=== PATIENT | female | born 1990 | race Caucasian/White ===

== ENCOUNTER 2018-12-24 04:06 | Inpatient (IN) | payer BC ==
[2018-12-24] MEDS ORDERED: Penicillin G Potassium IV* 5 MILLION.UNITS VIAL ONE (04:45)
[2018-12-24] MEDS ORDERED: Penicillin G Potassium IV* 5,000,000 UNITS in NS 0.9% 100 ML* 100 ML IVPB ONE (04:45)
[2018-12-24 05:00] LABS: ABS Eosinophils 0.1 10^3/ul (0-0.6); ABS Lymphocytes 1.9 10^3/ul (1.0-4.8); ABS Monocytes 0.8 10^3/ul (0-0.8); ABS Neutrophils 7.4 10^3/ul (1.5-7.7); Hematocrit 36 % (35-47); Hemoglobin 12.3 g/dL (12.0-16.0); Lymphocyte % 18.4 %; Mean Corpuscular HGB Conc 34 g/dL (31-36); Mean Corpuscular Hemoglobin 29 pg (27-31); Mean Corpuscular Volume 86 fL (80-97); Mean Platelet Volume 9.6 fL (7.4-10.4); Platelet Count 214 10^3/uL (150-450); Red Blood Count 4.19 10^6 /uL (3.70-4.87); Red Cell Distribution Width 15 % (10-15); White Blood Count 10.2 10^3/uL (3.5-10.8)
[2018-12-24] MEDS ORDERED: OBEPIDURAL* 250 ML EPIDURAL ONE (05:02)
[2018-12-24] MEDS ORDERED: Oxytocin in LR* 20 UNITS/1,000 ML BAG IVPB ONE (05:31)
[2018-12-24] MEDS ORDERED: Ibuprofen TAB* 600 MG ONE (06:00)
[2018-12-24] MEDS ORDERED: Lactated Ringers 1000 ML Bag* 500 ML IV PRN ×2 (06:02)
[2018-12-24] MEDS ORDERED: Phenylephrine 40 MCG/ML SYRINGE IV PUSH PRN ×2 (06:02)
[2018-12-24] MEDS ORDERED: Famotidine TAB* 20 MG PO PRN (06:02)
[2018-12-24] MEDS ORDERED: Sodium Citrate/Citric Acid* 15 ML UDC PO PRN (06:02)
[2018-12-24] MEDS ORDERED: Lactated Ringers 1000 ML Bag* 1,000 ML IV ONE ×2 (06:02→07:13)
[2018-12-24] MEDS ORDERED: Lidocaine 1% INJ* 10 MG/ML 30 ML SDV ONE (06:06)
[2018-12-24] MEDS ORDERED: OBEPIDURAL* 250 ML EPIDURAL SCH (07:00)
[2018-12-24] MEDS ORDERED: Lactated Ringers 1000 ML Bag* 1,000 ML IV SCH ×4 (07:00→08:00)
[2018-12-24] MEDS ORDERED: Buffered Lidocaine 1% SYRIN* 1 ML/SYRINGE INTRADERM ONE (07:13)
[2018-12-24] MEDS ORDERED: Acetaminophen TAB* 325 MG PO PRN (07:13)
[2018-12-24] MEDS ORDERED: Dibucaine 1% 28.35 GM TUBE PR PRN (07:13)
[2018-12-24] MEDS ORDERED: Glycerin ADULT SUPP PR PRN (07:13)
[2018-12-24] MEDS ORDERED: Witch Hazel PAD* JAR TOPICAL PRN (07:13)
--- NOTE | 2018-12-24 07:24 | HP ---
General Information - Reason for Visit contractions - General Information Maternal Age: 28 Grav: 2 Para: 1 SAB: 0 IEA: 0 Estimated Due Date: 12/28/18 Gestational Age in Weeks/Days: 39+3 Maternal Blood Type and Rh: A Positive - Results this Serology/RPR Result: Non-Reactive Rubella Result: Immune HBsAg Result: Negative HIV Result: Negative GBS Culture Result: Positive Past Medical History Delivery History: See Records Delivery History Comment: SVB 06/15 Pertinent Past Medical History: Non-Contributory Pertinent Past Surgical History: None Pertinent Family History: See Records Family History Comment: Breast Ca Lung Ca PE Stroke - Antepartal Records Antepartal Records: Reviewed, Uncomplicated Review of Systems Constitutional: Uncomfortable Exam Allergies/Adverse Reactions: Allergies bacitracin [From Neosporin ([id number])] Allergy (Verified 12/24/18 04:57) Rash Vital Signs 12/24/18 12/24/18 05:55 06:30 Temperature 98.2 F 97.9 F Pulse Rate 74 73 Respiratory 18 18 Rate Blood Pressure 122/54 118/63 (mmHg) Lab Values - Entire Visit: Laboratory Tests 12/24/18 12/24/18 04:37 04:37 WBC 10.2 RBC 4.19 Hgb 12.3 Hct 36 MCV 86 MCH 29 MCHC 34 RDW 15 Plt Count 214 MPV 9.6 Neut % (Auto) 72.6 Lymph % (Auto) 18.4 [place] % (Auto) 7.7 Eos % (Auto) 1.0 Baso % (Auto) 0.3 Absolute Neuts (auto) 7.4 Absolute Lymphs (auto) 1.9 Absolute Monos (auto) 0.8 Absolute Eos (auto) 0.1 Absolute Basos (auto) 0.0 Absolute Nucleated RBC 0.0 Nucleated RBC % 0.0 Blood Type A Positive Antibody Screen Negative - Measurements Height: 5 ft 8 in Weight: 209 lb Weight in lbs: 209.342841 Body Mass Index (BMI): 31.7 Pre- Weight: 175 lb - Ultrasound/Biophysical Profile Ultrasound Status: Not Done Targeted Exam Findings See L&D Outpatient Visit Provider Note for Findings: N/A EFM Findings - External Monitor Findings Baseline Heart Rate: 130 External Monitor Findings: Accelerations Present Contractions: Strong Assessment/Plan - Assessment IUP in active labor - Obstetrical Risk Factors Obstetrical Risk Factors: GBS Positive - Plan Plan: Admit - Anticipate Vaginal Delivery - Date/Time of Admission Date of Admission: 12/24/18 Time of Admission: 04:35
--- NOTE | 2018-12-24 07:30 | PROCNOTE ---
[facility] OB: Delivery Note - Delivery A Date of : 12/24/18 Time of : 05:28 Sex: Female Score 1 Minute: 8 Score 5 Minutes: 9 Gestational Age in Weeks and Days at Delivery: 39 Weeks and 3 Days Delivery Method: Spontaneous Vaginal Labor: Spontaneous Did Patient attempt ?: N/A, No Previous Amniotic Fluid: Meconium Estimated Blood Loss: 350 Anesthesia/Analgesia: CEI for Labor Delivered By: Brian Long - Nursery Level of Nursery: Regular/Bedside - Perineum Perineal Injury Comment: Right labial, 2 stitch repair with 4-0 Perineal Repair: By Delivering Practioner - Events Delivery Events of Note: Pitocin Only After Delivery - Additional Delivery Notes Additional Delivery Notes: Patient admitted in active labor. GBS prophylaxis initiate; single dose given. Desired epidural and test dose given then patient had sudden urge to push before infusion begun. LOL 3'03", pushed 2 minutes. Baby born OA, nuchal X2, delivered through, somersaulted and unwrapped after delivery, shoulders following smoothly. Baby to maternal abdomen with spontaneous cry and HR>110. Cord doubly clamped and cut by FOB once pulsations ceased. Placenta delivered with gentle cord traction, Meaghan and 3VC, membrane intact. Fundus firm with pitocin infusing. Perineum intact; right labial laceration repaired. Baby at breast to initiate .
[2018-12-24] MEDS ORDERED: Oxytocin in LR* 20 UNITS/1,000 ML BAG IVPB SCH (08:00)
[2018-12-24] MEDS: Ibuprofen TAB* 600 MG PO PRN ×2 (12:20→18:21)
[2018-12-24] MEDS: Docusate CAP* 100 MG PO SCH ×3 (12:21→21:22)
[2018-12-25] MEDS: Ibuprofen TAB* 600 MG PO PRN ×4 (00:59→20:35)
[2018-12-25 07:09] LABS: ABS Eosinophils 0.1 10^3/ul (0-0.6); ABS Lymphocytes 1.8 10^3/ul (1.0-4.8); ABS Monocytes 0.8 10^3/ul (0-0.8); ABS Neutrophils 7.8 10^3/ul (1.5-7.7); Eosinophil % 0.9 %; Hematocrit 31 % (35-47); Hemoglobin 10.6 g/dL (12.0-16.0); Lymphocyte % 17.3 %; Mean Corpuscular HGB Conc 35 g/dL (31-36); Mean Corpuscular Hemoglobin 30 pg (27-31); Mean Corpuscular Volume 87 fL (80-97); Mean Platelet Volume 9.6 fL (7.4-10.4); Platelet Count 171 10^3/uL (150-450); Red Blood Count 3.56 10^6 /uL (3.70-4.87); Red Cell Distribution Width 15 % (10-15); White Blood Count 10.6 10^3/uL (3.5-10.8)
[2018-12-25] MEDS: Docusate CAP* 100 MG PO SCH ×3 (08:17→20:35)
[2018-12-25] MEDS ORDERED: Ferrous Gluconate TAB* 324 MG TAB PO SCH (09:00)
[2018-12-26] MEDS: Ibuprofen TAB* 600 MG PO PRN (06:04)
[2018-12-26] MEDS: Docusate CAP* 100 MG PO SCH (07:33)
[2018-12-26 08:26] VITALS: BP 110/64
== END 2018-12-26 10:44 | disposition home or self-care (01) | DRG 560 ==
LOC: MCHOBOUT 04:06 → MCHOB 04:35
PROVIDERS: ADMIT Midwife; ATTEND Midwife
PROC: 10E0XZZ Delivery of Products of Conception, External Approach (ICD-10-PCS; principal; 2018-12-24)
PROC: 4A1HXCZ Monitoring of Products of Conception, Cardiac Rate, External Approach (ICD-10-PCS; 2018-12-24)
PROC: 0UQMXZZ Repair Vulva, External Approach (ICD-10-PCS; 2018-12-24)
DX: O99.824 Streptococcus B carrier state complicating childbirth (principal); Z37.0 Single live birth; O69.81X0 Labor and delivery complicated by cord around neck, without compression, not applicable or unspecified; O77.0 Labor and delivery complicated by meconium in amniotic fluid; O70.0 First degree perineal laceration during delivery; Z88.1 Allergy status to other antibiotic agents; Z3A.39 39 weeks gestation of pregnancy
CPT/HCPCS: 36415; 85025; 86850; 86900; 86901; A9270-GY; J2540